=== PATIENT | female | born 1955 | race Caucasian/White ===

== ENCOUNTER → 2016-05-24 | Outpatient (CLI) | payer BC ==
[~2016-05-24] MED LIST: ALBUTEROL17 GM INH; CENTRUM PO; CHANTIX PO; COMBIVENT INH14.7 GM INH; HCTZ PO; NASONEX17 GM; NEXIUM PO; SINGULAIR PO; SYMBICORT INH; TOPAMAX PO; VICODIN 5/500 T1 TAB PO
--- NOTE | ~2016-05-24 | MY11 ---
[facility] A Service of [facility] RADIOLOGY TEXT RESULTS PATIENT: BENITO BERTRAND LOCATION: [facility] : 59 UNIT #: [id number] AGE: [address]: Itz Parisi MD SEX: F ORDER DR: [id number] [address] [address] [id number] O MR#: [id number] Acc #: [id number] NAME: BENITO BERTRAND : 1955 SEX: F STUDY DATE/TIME: 05/24/2016 15:33 UNIT: [facility] ROOM: STUDY DESCRIPTION: MY Mammogram Screening Dig Francesco Attending Physician: Itz Parisi M.D. Referring Physician: Itz Parisi M.D. Ordering Physician: Itz Parisi M.D. Primary Care Physician: Itz Parisi M.D. MEDICAL IMAGING REPORT This report is preliminary unless electronic signature is present. EXAM Digital screening mammogram, 05/24/2016, [facility] HISTORY A 60-year-old woman, positive family history, mother age 52. Maternal aunt with ovarian cancer. Various breast symptoms with hormone replacement which is now discontinued. FINDINGS Digital imaging of each breast was completed utilizing a two-view examination of each breast in craniocaudal and mediolateral-oblique projections. Review and interpretation of digital mammograms include a second review in conjunction with FDA-approved CAD device. There is a normal parenchymal presentation bilaterally consistent with the patient's age. There are no breast masses imaged and no parenchymal asymmetry is visualized. There are no suspicious microcalcifications and I see no focal architectural disturbance. IMPRESSION Negative screening digital mammogram. One-year followup recommended. Patients over the age of 40 are entered into a reminder system with target due date for the next mammogram. A result letter will also be sent to the patient. BIRADS: 1 Negative ADDENDUM Breast parenchyma is fatty replaced Patients over the age of 40 are entered into a reminder system with target due date for the next mammogram. A result letter will also be sent to the patient. [facility] A Service of [facility] RADIOLOGY TEXT RESULTS PATIENT: BENITO BERTRAND LOCATION: [facility] : 59 UNIT #: [id number] AGE: [address]: Itz Parisi MD SEX: F ORDER DR: DESTINIADS: 1 Negative Dictated by... Vel Song M.D. THIS IS AN ELECTRONICALLY VERIFIED REPORT Vel Song M.D. at 05/25/2016 8:04 AM Jhon TD: 05/24/2016 22:05 JOB #: [id number] MEDICAL IMAGING REPORT Page 1 of 1
== END | disposition home or self-care (01) ==
LOC: SMAM 14:48
DX: Z12.31 Encounter for screening mammogram for malignant neoplasm of breast (principal); Z80.3 Family history of malignant neoplasm of breast
CPT/HCPCS: G0202